=== PATIENT | female | born 1995 | race African-American/Black ===

== ENCOUNTER 2019-08-18 23:02 | Emergency (ER) | payer MEDICAID, OTHER ==
[~2019-08-18] VITALS: Ht 165.1 cm; Wt 51.3 kg
[2019-08-18 23:53] VITALS: BP 104/69
== END 2019-08-19 01:25 | disposition home or self-care (01) ==
LOC: ER 23:02
DX: J02.9 Acute pharyngitis, unspecified (principal); Z20.828 Contact with and (suspected) exposure to other viral communicable diseases
CPT/HCPCS: 71045; 87635